=== PATIENT | female | born 1960 | race Caucasian/White ===

== ENCOUNTER 2021-12-14 18:02 | Outpatient (CLI) | payer SELFPAY ==
[2021-12-14 13:44] LABS: Chloride* 102 mmol/L (96-114); Sodium* 139 mmol/L (135-149)
[2021-12-14 13:45] LABS: Potassium* 4.3 mmol/L (3.6-5.1)
[2021-12-14 13:47] LABS: Carbon Dioxide* 29 mmol/L (20-32); Cholesterol* 265 mg/dL (90-199); Creatinine* 0.7 mg/dL (0.5-1.5); Estimated Glomerular Filt Rate 98 ml/min
[2021-12-14 13:48] LABS: Blood Urea Nitrogen* 17 mg/dL (7-30); Calcium* 9.6 mg/dL (8.4-10.6); Glucose* 97 mg/dL (60-115); HDL Cholesterol* 73 mg/dL (>=50); LDL Cholesterol Calculated 174 mg/dL (<100); Triglycerides* 88 mg/dL (40-149)
== END 2021-12-14 18:03 | disposition home or self-care (01) ==
PROVIDERS: PCP Family Medicine; Visit Provider Family Medicine
DX: Z01.419 Encounter for gynecological examination (general) (routine) without abnormal findings (principal); E78.00 Pure hypercholesterolemia, unspecified; F41.9 Anxiety disorder, unspecified; M85.80 Other specified disorders of bone density and structure, unspecified site
CPT/HCPCS: 80048; 80061

== ENCOUNTER 2022-01-27 13:25 | Outpatient (CLI) | payer SELFPAY ==
--- NOTE | 2022-01-27 13:30 | CRLHL7_ITS ---
For Patients: As a result of the Cures Act, medical imaging exams and procedure reports are released immediately into your electronic medical record. You may view this report before your referring provider. If you have questions, please contact your health care provider. DXA BONE MINERAL DENSITY STUDY, 01/27/2022 Reason for exam: Osteopenia. Current height (inches): 68.0 Weight (lbs.): 132.0 Menopause age: 51 Ethnicity: White 1. Have you had a previous hip or vertebral fracture? No. 2. Have you had any fractures during your adult life which did not result from significant trauma (e.g., auto accident)? No. 3. Did either of your parents have a hip fracture? No. 4. Do you smoke? No. 5. Have you ever taken Glucocorticoids? No. 6. Do you have rheumatoid arthritis? No. 7. Do you have secondary osteoporosis? No. 8. Do you drink 3 or more alcoholic drinks per day? No. 9. Are you being treated for osteoporosis? No. 10. Have you ever taken any of the following medications: Actonel, Evista, Fosamax, Miacalcin, Reclast, Boniva, Forteo, HRT (i.e., estrogen/hormone therapy), Protelos, Prolia, Vitamin D, Calcium, other ??? please specify. ANSWER: Yes; vitamin D and calcium. 11. Do you have any of the following medical conditions: Anorexia or bulimia, asthma or emphysema, end stage renal disease, hyperparathyroidism, any seizure disorders, cancer, inflammatory bowel diseases, hysterectomy, other ??? please specify. ANSWER: No. 12. What was your maximum height (inches)? 67. 13. Do you perform weightbearing exercise regularly? No. 14. Do you regularly consume dairy products? Yes. 15. Do you drink caffeinated beverages? Yes. 16. At what age did your period start? 17. 17. Are you premenopausal? No. 18. How many full-term pregnancies have you had? 2. 19. Have you ever missed your period for more than 6 months in a row (not including or menopause)? No. TECHNIQUE: Bone mineral density study was performed using the [employer]. FINDINGS: The results of the study expressed as bone mineral density (BMD) are as follows: Lumbar Spine L1 to L4: BMD: 0.858 g/cm2. T-score: -1.7. Z-score: -0.2. Neck Left: BMD: 0.573 g/cm2. T-score: -2.5. Z-score: -1.1. Right: BMD: 0.539 g/cm2. T-score: -2.8. Z-score: -1.5. Total Left: BMD: 0.708 g/cm2. T-score: -1.9. Z-score: -0.9. Right: BMD: 0.655 g/cm2. T-score: -2.4. Z-score: -1.3. IMPRESSION: Osteoporosis. JOSÉ LUIS MORROW M.D. Diagnostic Radiologist [email or web address] Transcribed: 6:[address]/Dictated by: José Luis Morrow MD @ 01/28/2022 9:32:00 AM (Electronically Signed)
== END 2022-01-27 13:26 | disposition home or self-care (01) ==
PROVIDERS: PCP Family Medicine; Visit Provider Family Medicine
DX: M85.80 Other specified disorders of bone density and structure, unspecified site (principal); M81.0 Age-related osteoporosis without current pathological fracture
CPT/HCPCS: 77080

== ENCOUNTER 2022-12-02 14:08 | Outpatient (CLI) | payer SELFPAY | END 2022-12-02 14:09 | disposition home or self-care (01) | LOC: NFLDREF 12-07 11:46 | PROVIDERS: PCP Family Medicine; Referring Provider Family Medicine; Visit Provider Family Medicine | DX: Z01.818 Encounter for other preprocedural examination (principal); Z00.00 Encounter for general adult medical examination without abnormal findings; S73.199A Other sprain of unspecified hip, initial encounter; E78.5 Hyperlipidemia, unspecified; M81.0 Age-related osteoporosis without current pathological fracture | CPT/HCPCS: 80048 ==

== ENCOUNTER 2023-02-17 13:24 | Outpatient (CLI) | payer OTHER, SELFPAY ==
--- NOTE | 2023-02-17 13:40 | CRLHL7_ITS ---
For Patients: As a result of the Century Cures Act, medical imaging exams and procedure reports are released immediately into your electronic medical record. You may view this report before your referring provider. If you have questions, please contact your health care provider. BILATERAL SCREENING MAMMOGRAM WITH COMPUTER-AIDED DETECTION AND TOMOSYNTHESIS TECHNIQUE: CC and MLO views were obtained. These mammographic images have been obtained using full-field digital technique. These mammographic images were interpreted with the benefit of computer-aided detection. Breast Tomosynthesis was used in this interpretation. COMPARISON FILM: No comparison available. FINDINGS: The breasts are heterogeneously dense, which may obscure small masses IMPRESSION: There is no radiographic evidence for malignancy. ASSESSMENT: BI-RADS Category 1: Negative RECOMMENDATION: Routine screening mammogram in 1 year. A lay language report of this examination will be provided to the patient. José Luis Dougherty M.D. Diagnostic Radiologist [email or web address] / be/Dictated by: José Luis Dougherty MD @ 02/20/2023 10:00:00 AM (Electronically Signed)
== END 2023-02-17 13:25 | disposition home or self-care (01) ==
LOC: MAMMO 13:28
PROVIDERS: PCP Family Medicine; Visit Provider Family Medicine
DX: Z12.31 Encounter for screening mammogram for malignant neoplasm of breast (principal); R92.2 Inconclusive mammogram
CPT/HCPCS: 77063; 77067

== ENCOUNTER 2023-03-02 07:57 | Outpatient (CLI) | payer OTHER, SELFPAY | END 2023-03-02 07:58 | disposition home or self-care (01) | LOC: NFLDREF 03-06 18:15 | PROVIDERS: PCP Family Medicine; Referring Provider Family Medicine; Visit Provider Family Medicine | DX: Z00.00 Encounter for general adult medical examination without abnormal findings (principal); E78.5 Hyperlipidemia, unspecified; M81.0 Age-related osteoporosis without current pathological fracture | CPT/HCPCS: 80061; 82306 ==

== ENCOUNTER 2023-03-23 14:56 | Outpatient (CLI) | payer OTHER, SELFPAY ==
--- NOTE | 2023-03-23 15:00 | CRLHL7_ITS ---
For Patients: As a result of the Century Cures Act, medical imaging exams and procedure reports are released immediately into your electronic medical record. You may view this report before your referring provider. If you have questions, please contact your health care provider. DXA BONE MINERAL DENSITY STUDY Reason for exam: Osteoporosis. Current height (in): 67.0. Weight (lb): 132.0. Menopause age: 51. Ethnicity: White. 1. Have you had a previous hip or vertebral fracture? No. 2. Have you had any fractures during your adult life which did not result from significant trauma (e.g., auto accident)? No. 3. Did either of your parents have a hip fracture? No. 4. Do you smoke? No. 5. Have you ever taken Glucocorticoids? No. 6. Do you have rheumatoid arthritis? No. 7. Do you have secondary osteoporosis? No. 8. Do you drink 3 or more alcoholic drinks per day? No. 9. Are you being treated for osteoporosis? No. 10. Have you ever taken any of the following medications: Actonel, Evista, Fosamax, Miacalcin, Reclast, Boniva, Forteo, HRT (i.e. estrogen/hormone therapy), Protelos, Prolia, Vitamin D, Calcium, other ??? please specify. ANSWER: Yes, Fosamax, HRT, vitamin D, calcium. 11. Do you have any of the following medical conditions: Anorexia or bulimia, asthma or emphysema, end stage renal disease, hyperparathyroidism, any seizure disorders, cancer, inflammatory bowel diseases, hysterectomy, other ??? please specify. ANSWER: No. 12. What was your maximum height (inches)? 68. 13. Do you perform weight bearing exercise regularly? No. 14. Do you regularly consume dairy products? Yes. 15. Do you drink caffeinated beverages? No. 16. At what age did your period start? 17. 17. Are you premenopausal? No. 18. How many full term pregnancies have you had? 2. 19. Have you ever missed your period for more than 6 months in a row (not including or menopause)? No. TECHNIQUE: Bone mineral density study was performed using the [employer]. FINDINGS: The results of the study expressed as bone mineral density (BMD) are as follows: Lumbar spine L1 to L4: BMD: 0.916 g/cm2. T-score: -1.2. Z-score: 0.4. Neck Left: BMD: 0.594 g/cm2. T-score: -2.3. Z-score: -0.9. Right: BMD: 0.539 g/cm2. T-score: -2.8. Z-score: -1.4. Total Left: BMD: 0.800 g/cm2. T-score: -1.2. Z-score: -0.1. Right: BMD: 0.718 g/cm2. T-score: -1.8. Z-score: -0.8. IMPRESSION: Osteoporosis. *Comparison exams done prior to 08/2019 were performed on different unit, [employer] COMPARISON: Compared with scan of 01/27/2022, the bone mineral density has increased by 6.7 percent at the spine and increased by 11.4 percent at the hip. FIONA WILSON M.D. JO-ANN:uri / [email or web address] be/Dictated by: Fiona Wilson MD @ 03/26/2023 8:33:00 PM (Electronically Signed)
== END 2023-03-23 14:57 | disposition home or self-care (01) ==
PROVIDERS: PCP Family Medicine; Visit Provider Family Medicine
DX: M81.0 Age-related osteoporosis without current pathological fracture (principal)
CPT/HCPCS: 77080

== ENCOUNTER 2023-09-21 12:01 | Outpatient (CLI) | payer OTHER, SELFPAY | END 2023-09-21 12:02 | disposition home or self-care (01) | LOC: NFLDREF 09-22 05:54 | PROVIDERS: PCP Family Medicine; Referring Provider Family Medicine; Visit Provider Family Medicine | DX: Z01.818 Encounter for other preprocedural examination (principal); S73.199A Other sprain of unspecified hip, initial encounter; Z79.890 Hormone replacement therapy; E78.5 Hyperlipidemia, unspecified; Z00.00 Encounter for general adult medical examination without abnormal findings; G47.00 Insomnia, unspecified; N95.2 Postmenopausal atrophic vaginitis; M81.0 Age-related osteoporosis without current pathological fracture | CPT/HCPCS: 80053; 80061 ==

== ENCOUNTER 2024-03-19 08:16 | Outpatient (CLI) | payer OTHER, SELFPAY | END 2024-03-19 08:17 | disposition home or self-care (01) | LOC: NFLDREF 03-20 02:29 | PROVIDERS: PCP Family Medicine; Referring Provider Family Medicine; Visit Provider Family Medicine | DX: E78.5 Hyperlipidemia, unspecified (principal); Z13.228 Encounter for screening for other metabolic disorders | CPT/HCPCS: 80053; 80061; 82306; 84443 ==

== ENCOUNTER 2024-03-21 08:21 | Outpatient (CLI) | payer SELFPAY | END 2024-03-21 08:22 | disposition home or self-care (01) | LOC: NFLDREF 04-07 19:22 | PROVIDERS: PCP Family Medicine; Referring Provider Family Medicine; Visit Provider Family Medicine | DX: M81.0 Age-related osteoporosis without current pathological fracture (principal); F41.9 Anxiety disorder, unspecified; I25.10 Atherosclerotic heart disease of native coronary artery without angina pectoris; N95.2 Postmenopausal atrophic vaginitis; Z13.228 Encounter for screening for other metabolic disorders; Z13.1 Encounter for screening for diabetes mellitus | CPT/HCPCS: 82306; 84443 ==